=== PATIENT | male | born 1975 | race Caucasian/White ===

== ENCOUNTER 2022-07-10 16:52 | Emergency (ER) | payer SELFPAY ==
[2022-07-10] MEDS ORDERED: Erythromycin Base 0.5% Ophth Oint 1 GM Tube EYEBOTH ONE (17:45)
[2022-07-10] MEDS ORDERED: Amoxicillin/Clavulanate K 875-125 MG Tab PO ONE (17:49)
== END 2022-07-10 18:01 | disposition home or self-care (01) ==
LOC: MW.ED 16:52
DX: H10.9 Unspecified conjunctivitis (principal); H66.93 Otitis media, unspecified, bilateral
CPT/HCPCS: 99282; A9270